=== PATIENT | male | born 1980 | race Caucasian/White ===

== ENCOUNTER → 2020-12-15 | Day surgery (SDC) | payer BC ==
[~2020-12-15] VITALS: Ht 188 cm; Wt 81.6 kg
[~2020-12-15] MED LIST: OMEPRAZOLE20 M1 PO; PERCOCET 5/325 T1 EA PO
[2020-12-15 02:00] LABS: HEMOGLOBIN 15.9 gm/dl (14.0-17.5); RED BLOOD COUNT 4.79 M/UL (4.20-5.50); WHITE BLOOD COUNT 10.7 K/UL (4.5-11.0)
[2020-12-15 02:22] LABS: BUN/CREATININE RATIO 11 (0-10)
== END | disposition home or self-care (01) ==
LOC: ER1 00:31 → CDU 09:22 → OR 14:16 → CDU 12-20 16:00
PROVIDERS: Physician Assistant; Surgery
PROC: 0FT44ZZ Resection of Gallbladder, Percutaneous Endoscopic Approach (ICD-10-PCS; principal; 2020-12-15 15:18)
DX: K81.0 Acute cholecystitis (principal); Z20.822 Contact with and (suspected) exposure to COVID-19; K21.9 Gastro-esophageal reflux disease without esophagitis; Z83.79 Family history of other diseases of the digestive system; Z87.81 Personal history of (healed) traumatic fracture; Z71.41 Alcohol abuse counseling and surveillance of alcoholic
CPT/HCPCS: 71045; 76705; 80053; 82550; 82553; 83690; 83874; 84484; 85025; 87040; 93005; 96374; 96375; 96376; 99285; C9113; J0690; J1100; J2001; J2250; J2270; J2405; J2543; J2704; J2710; J2765; J3010; J7030; J7120; Q9967; U0002